=== PATIENT | female | born 1955 | race Caucasian/White ===

== ENCOUNTER 2017-03-24 06:26 | Emergency (ER) | payer OTHER ==
[~2017-03-24] VITALS: Ht 162.6 cm; Wt 61.4 kg
[~2017-03-24 06:26] MED LIST: FEXO-106 PO; PARO20TA5 PO; [UNRECOGNIZED DRUG - CODE] PO
[2017-03-24 06:31] VITALS: BP 126/78; PULSE 60; RESP 24; O2SAT 99
[2017-03-24] MEDS ORDERED: ASPI-973 PO (06:34)
[2017-03-24] MEDS ORDERED: DILT180C56 PO (06:34)
[2017-03-24] MEDS ORDERED: FLC50T PO (06:34)
--- NOTE | 2017-03-24 06:39 | ED.REPORT ---
HPI-Neck Pain Free Text HPI Notes Mar 24, 2017 ED Provider: Mike Gruber MD Pt is a 61 year old female with a hx of afib presenting to the ED complaining of left sided neck pain onset 2 days ago worsened early this morning. She reports that throughout the night she had difficulty sleeping due to neck discomfort, then woke up with increased neck pain and decreased ROM of neck. Denies numbness, tingling, focal weakness, headache, pain in the middle of her neck, or any other symptoms at this time. She did some heavy lifting a few days ago but did not feel any injury at the time. She took 3 Ibuprofen at 0545 this morning. Nursing Notes Stated Complaint: PULLED MUSCLE IN NECK Chief Complaint: General Complaint Nursing Notes Reviewed: Yes ([employer], [employer] reconciled) Allergies: Coded Allergies: sertraline (Verified Allergy, Intermediate, increased anxiety, paranoia, ) strawberry (Verified Allergy, Intermediate, [employer] , 03/24/17) Scheduled Aspirin (Aspirin) 81 Mg Tablet 81 MG PO DAILY Cholecalciferol (Vitamin D3) (Vitamin D) 10,000 Unit Capsule 10,000 UNIT PO QW Diltiazem ER (Taztia XT) 180 Mg Capsule.er 180 MG PO DAILY Flecainide Acetate (Flecainide Acetate) 50 Mg Tablet 50 MG PO DAILY Scheduled PRN Cyclobenzaprine (Cyclobenzaprine) 5 Mg Tablet 5-10 MG PO TID PRN PRN Spasm Hydrocodone-Acetaminophen 5-325 mg (Hydrocodone-Acetaminophen 5-325 mg) 1 Each Tablet 1-2 TABLET PO TID PRN PRN For Pain Miscellaneous Medications Fexofenadine (Fexofenadine) 180 Mg Tablet 180 MG PO General Time Seen by Provider: 06:46 Chief Complaint Neck pain Hx Obtained From: Patient Arrived By: Walk-in Sudden in Onset?: No Onset Occurred: 2 days ago Symptom Duration: Since onset Progression Since Onset: Constant Quality: Painful Severity: Current: Severe Severity: Maximum: Severe Recent Healthcare: No recent doctor visit, No recent hospitalization Similar Sx Previous: No Past Medical History Past Medical History History of atrial fibrillation on flecainide GERD Past Surgical History Reports: Cataract surgery Smoking History Never Smoker Social History Alcohol Use: Denies alcohol use Drug Use: Denies drug use Ambulatory Status Independent Review of Systems Musculoskeletal: Reports: Neck pain Neurologic: Denies: Headache, Numbness, Weakness Complete sys rev & neg: except as marked. Physical Exam Initial Vital Signs Vital Signs (First) Date Time Temp Pulse Resp B/P Pulse Ox O2 Delivery O2 Flow Rate FiO2 03/24/17 06:31 36.1 60 24 126/78 99 Room Air Initial VS: Reviewed, Vital signs normal Head / Eyes: Atraumatic, Normocephalic, PERRL Respiratory: No respiratory distress Abdomen / GI: No distention Extremities: Vascular intact, Neuro intact, No swelling, No tenderness Skin: Warm, Dry, No cyanosis Psychiatric: Mood/affect normal, Behavior normal, Normal thought content General/Constitutional: Awake, Alert Appears uncomfortable, holding neck Neck: No adenopathy, No midline vertebral tend Meningeal Signs / ROM: Positive: Decreased extension Tenderness laterally. Pain with rotation, entension and flexion. No overt dystonia. ENT: Atraumatic, Airway patent Jaw normal. No Shyam's Angina or signs of infection. Upper Extremity / MS: Full range of motion, No swelling, Non-tender, No deformity, Neurologic intact, Vascular intact Some trace hives on right arm Interpretation & Diagnostics CT C-Spine Interpretation CONCLUSION: Mild degenerative change. No fracture or listhesis. This report was transmitted to the emergency room at 03/24/2017 - 7:32:11 AM PDT. Interpretation / Wet Read by: Interpret - Radiologist Re-Eval/Medical Decision Med Decision/Clinical Course This is a pleasant 61-year-old female who presents complaining of neck pain and stiffness. She notes a couple days ago she was involved in helping lift a heavy item, but had no pain or discomfort at that time. Several little bit of soreness and stiffness in the left side, but this morning had severe pain and stiffness on the left side of her neck. It is worsened with any movement either flexion extension or rotation of the pain is along the trapezius laterally, not in the midline. There is no fever, no swelling of the neck or jaw or dysphagia, no cervical adenopathy, no neurologic symptoms. The patient reports it is very uncomfortable, she took ibuprofen and have severe pain on arrival. Exam she does appear comfortable, with decreased range of motion, and tenderness along the trapezius but no swelling, no critical signs of infection or other acute process. Given this patient's discomfort and the possibility of a jumped facet CT imaging was obtained that was negative. Patient received oral pain medicine with clinical improvement. Not finding evidence of an infectious process, airway process. There is no signs of an acute neurologic emergency requiring further intervention. Patient is discharged with coarse Vicoprofen, some when necessary cyclobenzaprine, and when necessary hydrocodone. Routine and return precautions reviewed. Source of Hx: Old records Re-Evaluation/Progress : Time of Eval: 08:14 Patient Status: Condition improved Re-Evaluation/Progress Note: Pt feeling much better, hives resolved. Discussed CT results and plan for discharge. Pt understands and agrees. Counseled Regarding: Diagnosis, Lab results, Need for follow-up, When/why to return to ED Discharge & Departure Primary Impression: Cervical myofascial strain Encounter type: initial encounter Qualified Code: S16.1XXA - Strain of muscle, fascia and tendon at neck level, initial encounter Disposition: Home Discharge Condition All VS Reviewed: Yes Condition: Improved Additional Instructions: 1. The CT scan was normal. 2. Continue ibuprofen 400 800 mg up to 3 times a day for pain. 3. If needed, take the relaxant cyclobenzaprine 5-10 mg up to 3 times a day for spasm. Note: This medication causes some drowsiness. 4. If needed for more severe pain, take hydrocodone 05/325 1-2 tabs up to 3 times a day-note this medicine contains narcotic and causes additional drowsiness. Use sparingly. 5. Apply warm packs for additional comfort. 6. Activities as tolerated as encouraged. Studies have demonstrated fast to return to normal function and resolution of symptoms with activities as tolerated, rather than using a neck brace, or immobilizing. Symptoms are expected to improve with time, but may take a few days until we can do to completely resolve. 7. Follow-up with Dr. Hook as needed. Return if new or worsened symptoms occur. Referrals: Ricarda Hook MD (PCP) ED Scribe Statement Portions of this note were transcribed by Blanca Chahal. I, Dr. Gruber personally performed the history, physical exam and medical decision-making; I reviewed and confirmed the accuracy of the information in the transcribed note. Signed by: Patricia Rabago, 03/24/2017 at 0851. copies to: Ricarda Hook MD, Matthew F MD Mar 24, 2017 06:39 BLANCA CHAHAL Mar 24, 2017 06:49
[2017-03-24] MEDS ORDERED: HYDROcodone-APAP 5-325 mg Tablet PO ONE (06:50)
[2017-03-24] MEDS ORDERED: diphenhydrAMINE 25 mg Capsule PO ONE (06:50)
[2017-03-24] MEDS ORDERED: HYDR-4003 PO (08:27)
[2017-03-24] MEDS ORDERED: CYCL5TAB PO (08:27)
--- NOTE | 2017-03-24 11:42 | DRSVH ---
PROCEDURE: CT CERVICAL SPINE WITHOUT CONTRAST ([id number]) INDICATIONS: Neck pain TECHNIQUE: Noncontrast 3 mm thick sections acquired from the skull base to the T4 level. Sagittal and coronal r eformats were then constructed. For radiation dose reduction, the following was used: automated exp osure control, adjustment of mA and/or kV according to patient size. COMPARISON: [facility], CT, MASTOIDS W/O CONTRAST, 04/22/2004, 15:14. FINDINGS: Image quality: Excellent. Bones: There is irregularity of the odontoid tip with nondisplaced lucency. No adjacent soft tissue e claudia. Visualized superior ribs are intact. Soft tissues: Prevertebral soft tissues are normal in thickness. No paravertebral hematomas. No ap ical pneumothoraces. IMPRESSION: 1. Irregularity without a definite nondisplaced lucency. This is suspected to be related to degenerat jluis change, rather than fracture. Findings were discussed with Dr. Mike Gruber on 03/24/17 and con firmed there was no history of trauma either acute or remote. If concern persists, MRI may be obtaine d. Dictated by: Huong Castillo M.D. on 03/24/2017 at 11:26 Approved by: Huong Castillo M.D. on 03/24/2017 at 11:40
== END 2017-03-24 09:03 | disposition home or self-care (01) ==
LOC: SED 06:26
DX: S16.1XXA Strain of muscle, fascia and tendon at neck level, initial encounter (principal); X50.0XXA Overexertion from strenuous movement or load, initial encounter; Y93.89 Activity, other specified; Y92.9 Unspecified place or not applicable; Y99.8 Other external cause status; K21.9 Gastro-esophageal reflux disease without esophagitis; Z88.8 Allergy status to other drugs, medicaments and biological substances; Z91.018 Allergy to other foods